=== PATIENT | female | born 1980 | race Caucasian/White ===

== ENCOUNTER 2017-01-30 17:58 | Inpatient (IN) | payer BC ==
[2017-01-30 19:30] VITALS: BMI 26.9
--- NOTE | 2017-01-30 20:17 | HP ---
COWS - Scale Resting Pulse: 0= [place] 80 or Below Sweatin=Flushed/Facial Moisture Restless Observation: 1= Difficult to Sit Still Pupil Size: 1= Pupils >than Normal Bone or Joint Aches: 2= Severe Diffuse Aches Runny Nose/ Eye Tearin= Runny Nose/Eyes GI Upset > 30mins: 2= Nausea/Diarrhea Tremor Observation: 2= Slight Tremor Visible Yawning Observation: 0= None Anxiety or Irritability: 2=Irritable/Anxious Goose Flesh Skin: 0=Smooth Skin COWS Score: 14 CIWA Score - CIWA Score Nausea/Vomitin Muscle Tremors: 2 Anxiety: 3 Agitation: 2 Paroxysmal Sweats: 2 Orientation: 0-Oriented Tacttile Disturbances: 1-Very Mild Itch/Numbness Auditory Disturbances: 2-Mild Harshness/Frighten Visual Disturbances: 0-None Headache: 0-None Present CIWA-Ar Total Score: 14 Admission ROS S - HPI Chief Complaint: DEPENDENT ON HEROIN, XANAX, MARIJUANA AND COCAINE Allergies/Adverse Reactions: Allergies Allergy/AdvReac Type Severity Reaction Status Date / Time No Known Allergies Allergy Verified 01/30/17 20:26 History of Present Illness: THE PT. IS REQUESTING ADMISSION TO THE DETOX UNIT AND CAME FOR MEDICAL CLEARANCE. Exam Limitations: No Limitations - Ebola screening Have you traveled outside of the country in the last 21 days: No Have you had contact with anyone from an Ebola affected area: No Have you been sick,other than usual withdrawal symptoms: No Do you have a fever: No - Review of Systems Constitutional: See HPI, Malaise, Weakness EENT: reports: See HPI, Tearing Respiratory: reports: See HPI Cardiac: reports: See HPI GI: reports: See HPI, Diarrhea, Nausea, Vomiting, Abdominal cramping : reports: No Symptoms Reported, See HPI Musculoskeletal: reports: See HPI, Muscle Pain, Muscle Weakness Integumentary: reports: See HPI, Flushing, Sweating Neuro: reports: See HPI, Headache, Tremors, Weakness Endocrine: reports: See HPI Hematology: reports: See HPI Psychiatric: reports: Judgement Intact, Orientated x3, Anxious, Depressed Patient History - Patient Medical History Hx Seizures: No Hx Human Immunodeficiency Virus (HIV): Yes Hx Hepatitis C: No Hx Suicide Attempt: No Hx Bipolar Disorder: Yes (AND ANXIETY) - Patient Surgical History Past Surgical History: No Other Surgical History: BTL IN 2003 - Reproductive History Patient is a Female of Child Bearing Age (11 -55 yrs old): Yes Last Menstrual Period: 01/15/17 Patient : No - Smoking Cessation Smoking history: Never smoked Hx Chewing Tobacco Use: No Initiated information on smoking cessation: No 'Breaking Loose' booklet given: 01/30/17 - Substances Abused Heroin Route: Inhalation Frequency: Daily Amount used: 1/2 GRAM/D Age of first use: 34 Date of Last Use: 01/29/17 Alprazolam (Xanax) Route: Oral Frequency: Daily Amount used: 1 STICK/D Age of first use: 30 Date of Last Use: 01/28/17 Marijuana/Hashish Route: Smoking Frequency: 1-2 times per week Amount used: $10/D Age of first use: 20 Date of Last Use: 01/28/17 Cocaine Route: Inhalation Frequency: 1-3 times last 30 days Amount used: $20/ONCE A MONTH Age of first use: 27 Date of Last Use: 01/27/17 Family Disease History - Family Disease History Family History: Denies Admission Physical Exam [facility] - Vital Signs Vital Signs: Vital Signs - 24 hr 01/30/17 19:23 Temperature 98.0 F Pulse Rate 67 Respiratory 16 Rate Blood Pressure 119/70 - Physical General Appearance: Yes: No Apparent Distress, Nourished, Appropriately Dressed , Tremorous, Irritable, Sweating, Anxious HEENTM: Yes: Hearing grossly Normal, Normocephalic, Normal Voice, BRI, Pharynx Normal Respiratory: Yes: Chest Non-Tender, Lungs Clear, Normal Breath Sounds, No Respiratory Distress, No Accessory Muscle Use Neck: Yes: No masses,lesions,Nodules, Supple, Trachea in good position Breast: Yes: Breast Exam Deferred, Axillae without masses Cardiology: Yes: Regular Rhythm, Regular Rate, S1, S2 Abdominal: Yes: Normal Bowel Sounds, Non Tender, Flat, Soft Back: Yes: Normal Inspection Musculoskeletal: Yes: full range of Motion, Gait Steady, Pelvis Stable, Muscle Pain, Muscle weakness Extremities: Yes: Normal Capillary Refill, Normal Range of Motion, Non-Tender, Tremors Neurological: Yes: construction project mgr II-XII NML intact, Fully Oriented, Alert, Motor Strength 5/5, Normal Response Integumentary: Yes: Normal Color, Warm, Moist Lymphatic: Yes: Within Normal Limits Cleared for Admission S - Detox or Rehab [facility] Level of Care: Medically Supervised Detox Regimen/Protocol: Methadone/Valium S Breath Alcohol Content Breath Alcohol Content: 0 Urine Pregancy Test - Test Device Lot Number: [id number] Expiration Date: 08/13/16 - Control Horizontal Line in Upper Control Window?: Yes - Result Urine Test Results: Negative- NO Line Present Urine Drug Screen - Test Device Lot Number: [id number] Expiration Date: 10/13/16 - Control Is Test Valid: Yes - Results Drug Screen Negative: No Urine Drug Screen Results: THC-Marijuana, CHAUNCEY-Cocaine, OPI-Opiates, BZO- Benzodiazepines, MTD-Methadone
[2017-01-30] MEDS ORDERED: MENTHOL/PHENOL 1 EACH UD MM PRN (20:32)
[2017-01-30] MEDS ORDERED: METHADONE HCL 10 MG TABLET (FOR DETOX USE ONLY) PO ONE ×2 (20:32→23:00)
[2017-01-30] MEDS ORDERED: NICOTINE POLACRILEX 2 MG GUM BUC PRN (20:32)
[2017-01-30] MEDS ORDERED: LOPERAMIDE HCL 2 MG CAPSULE PO PRN (20:32)
[2017-01-30] MEDS ORDERED: diazePAM 5 MG TABLET PO ONE (20:32)
[2017-01-30] MEDS ORDERED: hydrOXYzine PAMOATE 25 MG CAPSULE (FP) PO PRN (20:32)
[2017-01-30] MEDS ORDERED: guaiFENesin/D-METHORPHAN HB 10 ML UNIT-DOSE CUPS PO PRN (20:32)
[2017-01-30] MEDS ORDERED: ACETAMINOPHEN 325 MG TABLET (FP) PO PRN (20:32)
[2017-01-30] MEDS ORDERED: IBUPROFEN 400 MG TABLET (FP) PO PRN (20:32)
[2017-01-30] MEDS ORDERED: P-EPHED 60MG/TRIPROLIDI 2.5MG TABLET PO PRN (20:32)
[2017-01-30] MEDS ORDERED: MAG HYDROX/AL HYDROX/SIMETH 30 ML UNIT-DOSE CUP PO PRN (20:32)
[2017-01-30] MEDS ORDERED: MAGNESIUM HYDROX 2400MG/30ML ORAL SUSPENSION 30 ML CUP PO PRN (20:32)
[2017-01-30] MEDS ORDERED: MAGNESIUM CITRATE 300 ML BOTTLE PO PRN (20:32)
[2017-01-30] MEDS: THIAMINE HCL 100 MG TABLET (FP) PO SCH (22:16)
[2017-01-30] MEDS: diazePAM 5 MG TABLET PO SCH (23:03)
[2017-01-31] MEDS: diazePAM 5 MG TABLET PO SCH ×3 (06:06→22:24)
[2017-01-31 09:49] LABS: MCH 29.9 pg (25.7-33.7); MCHC 32.7 g/dl (32.0-36.0); MEAN CELL VOLUME 91.5 fl (80-96); MEAN PLT VOLUME 9.1 fl (7.5-11.1); PLATELET COUNT 174 K/MM3 (134-434); WHITE BLOOD COUNT 3.9 K/mm3 (4.0-10.0)
[2017-01-31] MEDS ORDERED: METHADONE HCL 10 MG TABLET (FOR DETOX USE ONLY) PO SCH (10:00)
--- NOTE | 2017-01-31 10:00 | PN ---
[facility] CIWA - CIWA Score Nausea/Vomitin Muscle Tremors: 3 Anxiety: 3 Agitation: 3 Paroxysmal Sweats: 1-Minimal Palms Moist Orientation: 0-Oriented Tacttile Disturbances: 1-Very Mild Itch/Numbness Auditory Disturbances: 1-Very Mild Visual Disturbances: 1-Very Mild Sensitivity Headache: 2-Mild CIWA-Ar Total Score: 18 BHS COWS - Scale Resting Pulse: 0= [place] 80 or Below Sweatin= Chills/Flushing Restless Observation: 3= Extraneous Movement Pupil Size: 1= Pupils >than Normal Bone or Joint Aches: 2= Severe Diffuse Aches Runny Nose/ Eye Tearin= Runny Nose/Eyes GI Upset > 30mins: 3= Vomiting/Diarrhea Tremor Observation of Outstretched Hands: 2= Slight Tremor Visible Yawning Observation: 1= 1-2x During Session Anxiety or Irritability: 2=Irritable/Anxious Goose Flesh Skin: 0=Smooth Skin COWS Score: 17 S Progress Note (SOAP) Subjective: alert,irritable,anxious.interrupted sleep,tremor,pain in the body and back Objective: 01/31/17 09:57 Vital Signs Temperature 97.9 F 01/31/17 06:09 Pulse Rate 79 01/31/17 06:09 Respiratory Rate 16 01/31/17 06:09 Blood Pressure 88/64 01/31/17 06:09 O2 Sat by Pulse Oximetry (%) ekg sinus bradycardia 58 /min no chest pain,no sob,no dizziness Laboratory Last Values WBC 3.9 K/mm3 (4.0-10.0) L 01/31/17 07:00 RBC 3.76 M/mm3 (3.60-5.2) 01/31/17 07:00 Hgb 11.3 GM/dL (10.7-15.3) 01/31/17 07:00 Hct 34.4 % (32.4-45.2) 01/31/17 07:00 MCV 91.5 fl (80-96) 01/31/17 07:00 MCH 29.9 pg (25.7-33.7) 01/31/17 07:00 MCHC 32.7 g/dl (32.0-36.0) 01/31/17 07:00 RDW 13.0 % (11.6-15.6) 01/31/17 07:00 Plt Count 174 K/MM3 (134-434) 01/31/17 07:00 MPV 9.1 fl (7.5-11.1) 01/31/17 07:00 labs pending Assessment: 01/31/17 09:59 withdrawal symptom Plan: continue detox
[2017-01-31 10:09] LABS: ALBUMIN 3.3 g/dl (3.4-5.0); ALK PHOS 58 U/L (45-117); ANION GAP 4 (8-16); BILIRUBIN,TOTAL 0.4 mg/dL (0.2-1.0); CALCIUM 8.4 mg/dL (8.5-10.1); CO2 30 mmol/L (21-32); CREATININE 0.8 mg/dL (0.55-1.02); GLUCOSE,RANDOM 73 mg/dL (74-106); SGOT/AST 11 U/L (15-37); SGPT/ALT 14 U/L (12-78); TOT PROT 6.5 g/dl (6.4-8.2)
[2017-01-31] MEDS: PRENATAL VITAMINS W/ FOLIC ACID TABLET (FP) PO SCH (10:17)
[2017-01-31] MEDS: DARUNAVIR ETHANOLATE 800 MG TAB PO SCH (10:21)
[2017-01-31] MEDS: RITONAVIR 100 MG TABLET PO SCH (10:21)
[2017-01-31] MEDS: EMTRICITABINE 200MG/TENOFOVIR 300MG PO SCH (10:21)
[2017-01-31] MEDS: diazePAM 5 MG TABLET PO PRN (10:23)
--- NOTE | 2017-01-31 10:47 | CONSULT ---
[facility] Psychiatric Consult - Data Date of interview: 01/31/17 Admission source: [facility] Identifying data: This is 36 years old female with n o psychiatric hospitalizationm history intoxicated with: Heroin, Cocaine, Cannabis, Xanax and Nicotine Substance Abuse History: - Smoking Cessation. Smoking history: Never smoked. Hx Chewing Tobacco Use: No. Initiated information on smoking cessation: No. ' Breaking Loose' booklet given: 01/30/17. - Substances Abused. Heroin. Route: Inhalation. Frequency: Daily. Amount used: 1/2 GRAM/D. Age of first use: 34. Date of Last Use: 01/29/17. Alprazolam (Xanax). Route: Oral. Frequency: Daily. Amount used: 1 STICK/D. Age of first use: 30. Date of Last Use: 01/28/17. Marijuana/Hashish. Route: Smoking. Frequency: 1-2 times per week. Amount used: $10/D. Age of first use: 20. Date of Last Use: . Cocaine. Route: Inhalation. Frequency: 1-3 times last 30 days. Amount used: $20/ONCE A MONTH. Age of first use: 27. Date of Last Use: Medical History: HIV+, Psychiatric History: Patient reprots no past psychiatric history Physical/Sexual Abuse/Trauma History: Denies Additional Comment: Observation. Detox Unit Care Protocol Mental Status Exam - Mental Status Exam Alert and Oriented to: Place, Person Cognitive Function: Fair Patient Appearance: Well Groomed Mood: Apprehensive Affect: Mood Congruent Patient Behavior: Cooperative Speech Pattern: Appropriate Voice Loudness: Normal Thought Process: Goal Oriented Thought Disorder: Being Controlled Hallucinations: Denies Suicidal Ideation: Denies Homicidal Ideation: Denies Insight/Judgement: Fair Sleep: Difficulty falling asleep Appetite: Fair Muscle strength/Tone: Normal Gait/Station: Normal Additional Comments: Observation. Detox Unit Care Protocol Psychiatric Findings - Problem List ([place] 1, 2,3) (1) Cannabis dependence Current Visit: Yes Status: Acute (2) Cocaine dependence Current Visit: Yes Status: Acute (3) Opioid dependence with withdrawal Current Visit: Yes Status: Acute (4) Uncomplicated sedative, hypnotic or anxiolytic withdrawal Current Visit: Yes Status: Acute (5) Nicotine dependence Current Visit: Yes Status: Acute - Initial Treatment Plan Initial Treatment Plan: Observation. Detox Unit Care Protocol
[2017-01-31 14:24] LABS: URINE APPEARANCE SLCLOUDY; URINE BILIRUBIN NEGATIVE (NEGATIVE); URINE BLOOD NEGATIVE (NEGATIVE); URINE COLOR YELLOW; URINE GLUCOSE (UA) NEGATIVE (NEGATIVE); URINE KETONE NEGATIVE (NEGATIVE); URINE LEUK ESTERASE TRACE (NEGATIVE); URINE NITRITE NEGATIVE (NEGATIVE); URINE PROTEIN NEGATIVE (NEGATIVE); URINE UROBILINOGEN NEGATIVE mg/dL (0.2-1.0)
[2017-01-31 14:31] LABS: URINE MUCUS MANY; URINE RBC 1 /hpf (0-3); URINE WBC 10 /hpf (3-5)
--- NOTE | 2017-01-31 17:01 | EKG ---
Test Reason : Blood Pressure : / mmHG Vent. Rate : 058 BPM Atrial Rate : 058 BPM P-R Int : 154 ms QRS Dur : 080 ms QT Int : 416 ms P-R-T Axes : 050 053 050 degrees QTc Int : 408 ms SINUS BRADYCARDIA POSSIBLE LEFT ATRIAL ENLARGEMENT BORDERLINE ECG NO PREVIOUS ECGS AVAILABLE Confirmed by KATIE SHAH MD ([id number]) on 01/31/2017 5:00:42 PM Referred By: Confirmed By:KATIE SHAH MD
[2017-01-31] MEDS: THIAMINE HCL 100 MG TABLET (FP) PO SCH (22:24)
[2017-01-31] MEDS: diphenhydrAMINE HCL 50 MG CAPSULE PO PRN (22:24)
[2017-02-01] MEDS: diazePAM 5 MG TABLET PO PRN ×2 (05:16→14:24)
[2017-02-01] MEDS: EMTRICITABINE 200MG/TENOFOVIR 300MG PO SCH (07:36)
[2017-02-01] MEDS: DARUNAVIR ETHANOLATE 800 MG TAB PO SCH (07:36)
[2017-02-01] MEDS: RITONAVIR 100 MG TABLET PO SCH (07:36)
--- NOTE | 2017-02-01 09:22 | PN ---
S CIWA - CIWA Score Nausea/Vomitin Muscle Tremors: 3 Anxiety: 3 Agitation: 3 Paroxysmal Sweats: 1-Minimal Palms Moist Orientation: 0-Oriented Tacttile Disturbances: 1-Very Mild Itch/Numbness Auditory Disturbances: 1-Very Mild Visual Disturbances: 1-Very Mild Sensitivity Headache: 2-Mild CIWA-Ar Total Score: 17 BHS COWS - Scale Resting Pulse: 0= [place] 80 or Below Sweatin= Chills/Flushing Restless Observation: 3= Extraneous Movement Pupil Size: 1= Pupils >than Normal Bone or Joint Aches: 2= Severe Diffuse Aches Runny Nose/ Eye Tearin= Nasal Congestion GI Upset > 30mins: 3= Vomiting/Diarrhea Tremor Observation of Outstretched Hands: 2= Slight Tremor Visible Yawning Observation: 1= 1-2x During Session Anxiety or Irritability: 2=Irritable/Anxious Goose Flesh Skin: 0=Smooth Skin COWS Score: 16 BHS Progress Note (SOAP) Subjective: alert,irritable,anxious,interrupted sleep,pain in the body and back,tremor Objective: 02/01/17 09:21 Vital Signs Temperature 97.5 F L 02/01/17 06:00 Pulse Rate 62 02/01/17 06:00 Respiratory Rate 18 02/01/17 06:00 Blood Pressure 102/57 02/01/17 06:00 O2 Sat by Pulse Oximetry (%) Laboratory Last Values WBC 3.9 K/mm3 (4.0-10.0) L 01/31/17 07:00 RBC 3.76 M/mm3 (3.60-5.2) 01/31/17 07:00 Hgb 11.3 GM/dL (10.7-15.3) 01/31/17 07:00 Hct 34.4 % (32.4-45.2) 01/31/17 07:00 MCV 91.5 fl (80-96) 01/31/17 07:00 MCH 29.9 pg (25.7-33.7) 01/31/17 07:00 MCHC 32.7 g/dl (32.0-36.0) 01/31/17 07:00 RDW 13.0 % (11.6-15.6) 01/31/17 07:00 Plt Count 174 K/MM3 (134-434) 01/31/17 07:00 MPV 9.1 fl (7.5-11.1) 01/31/17 07:00 Sodium 138 mmol/L (136-145) 01/31/17 07:00 Potassium 3.9 mmol/L (3.5-5.1) 01/31/17 07:00 Chloride 104 mmol/L (98-107) 01/31/17 07:00 Carbon Dioxide 30 mmol/L (21-32) 01/31/17 07:00 Anion Gap 4 (8-16) L 01/31/17 07:00 BUN 19 mg/dL (7-18) H 01/31/17 07:00 Creatinine 0.8 mg/dL (0.55-1.02) 01/31/17 07:00 Creat Clearance w eGFR > 60 (>60) 01/31/17 07:00 Random Glucose 73 mg/dL (74-106) L 01/31/17 07:00 Calcium 8.4 mg/dL (8.5-10.1) L 01/31/17 07:00 Total Bilirubin 0.4 mg/dL (0.2-1.0) 01/31/17 07:00 AST 11 U/L (15-37) L 01/31/17 07:00 ALT 14 U/L (12-78) 01/31/17 07:00 Alkaline Phosphatase 58 U/L (45-117) 01/31/17 07:00 Total Protein 6.5 g/dl (6.4-8.2) 01/31/17 07:00 Albumin 3.3 g/dl (3.4-5.0) L 01/31/17 07:00 Urine Color Yellow 01/31/17 09:55 Urine Appearance Slcloudy 01/31/17 09:55 Urine pH 6.0 (5.0-8.0) 01/31/17 09:55 Ur Specific [place] 1.025 (1.005-1.025) 01/31/17 09:55 Urine Protein Negative (NEGATIVE) 01/31/17 09:55 Urine Glucose (UA) Negative (NEGATIVE) 01/31/17 09:55 Urine Ketones Negative (NEGATIVE) 01/31/17 09:55 Urine Blood Negative (NEGATIVE) 01/31/17 09:55 Urine Nitrite Negative (NEGATIVE) 01/31/17 09:55 Urine Bilirubin Negative (NEGATIVE) 01/31/17 09:55 Urine Urobilinogen Negative mg/dL (0.2-1.0) 01/31/17 09:55 Urine RBC 1 /hpf (0-3) 01/31/17 09:55 Urine WBC 10 /hpf (3-5) 01/31/17 09:55 Ur Epithelial Cells Few /hpf (FEW) 01/31/17 09:55 Urine Mucus Many 01/31/17 09:55 RPR Titer Nonreactive (NONREACTIVE) 01/31/17 07:00 Assessment: 02/01/17 09:21 withdrawal symptom Plan: continue detox,encourage oral fluid,ensure plus 120 mls po bid
[2017-02-01] MEDS ORDERED: METHADONE HCL 5 MG TABLET (FOR DETOX USE ONLY) PO SCH (10:00)
[2017-02-01] MEDS: diazePAM 5 MG TABLET PO SCH ×2 (10:09→22:08)
[2017-02-01] MEDS: PRENATAL VITAMINS W/ FOLIC ACID TABLET (FP) PO SCH (10:09)
--- NOTE | 2017-02-01 16:10 | PN ---
Psychiatric Progress Note Vital Signs: Vital Signs Period Temp Pulse Resp BP Sys/Castellon Pulse Ox Last 24 Hr 97.2 F-98.2 F 61-79 16-18 94-116/55-73 Date of Session: 02/01/17 Chief Complaint:: Insomnia HPI: Patien reports insomnia, reprots good response in the past for Seroquel 100mg po qhs Current Medications: Active Medications Generic Name Dose Route Start Last Admin Trade Name Freq PRN Reason Stop Dose Admin Acetaminophen 650 mg 01/30/17 20:32 Tylenol - PO Q4H PRN FEVER OR PAIN Al Hydroxide/Mg Hydroxide 30 ml 01/30/17 20:32 Mylanta Oral Suspension - PO Q6H PRN DYSPEPSIA Darunavir 800 mg 01/31/17 10:00 02/01/17 07:36 Prezista - PO 800 mg DAILY@0800 JORGE Administration Diazepam 10 mg 01/30/17 20:32 02/01/17 14:24 Valium - PO 02/02/17 20:32 10 mg Q4H PRN Administration WITHDRAWAL(CONT SUBST) Diazepam 5 mg 02/01/17 10:00 02/01/17 10:09 Valium - PO 02/02/17 22:01 5 mg BID JORGE Administration Diazepam 5 mg 02/03/17 10:00 Valium - PO 02/03/17 10:01 DAILY JORGE Diphenhydramine HCl 50 mg 01/30/17 20:32 01/31/17 22:24 Benadryl - PO 50 mg HSMR1 PRN Administration INSOMNIA Emtricitabine/Tenofovir 1 tab 01/31/17 10:00 02/01/17 07:36 Truvada PO 1 tab DAILY@0800 JORGE Administration Eucalyptus/Menthol/Phenol/Sorbitol 1 each 01/30/17 20:32 Cepastat Lozenge - MM Q4H PRN SORE THROAT Guaifenesin 10 ml 01/30/17 20:32 Robitussin Dm - PO Q6H PRN COUGH Hydroxyzine Pamoate 25 mg 01/30/17 20:32 Vistaril - PO Q4H PRN AGITATION Ibuprofen 400 mg 01/30/17 20:32 Motrin - PO Q6H PRN SEVERE PAIN Loperamide HCl 4 mg 01/30/17 20:32 Imodium - PO Q6H PRN DIARRHEA Magnesium Citrate 300 ml 01/30/17 20:32 Citroma - PO Q48H PRN CONSTIPATION Magnesium Hydroxide 30 ml 01/30/17 20:32 Milk Of Magnesia - PO DAILY PRN CONSTIPATION Methadone HCl 10 mg 02/03/17 10:00 Dolophine - PO 02/03/17 10:01 DAILY JORGE Methadone HCl 15 mg 02/01/17 10:00 02/01/17 10:10 Dolophine - PO 02/02/17 10:01 15 mg DAILY JORGE Administration Methadone HCl 5 mg 02/04/17 06:00 Dolophine - PO 02/04/17 06:01 DAILY@0600 JORGE Nicotine Polacrilex 2 mg 01/30/17 20:32 Nicorette Gum - BUC Q2H PRN NICOTINE REPLACEMENT RX Multivit/Folic Acid/Iron 1 tab 01/31/17 10:00 02/01/17 10:09 Vitamins (Sjr) - PO 1 tab DAILY JORGE Administration Pseudoephedrine/Triprolidine 1 combo 01/30/17 20:32 Actifed - PO TID PRN NASAL CONGESTION Ritonavir 100 mg 01/31/17 10:00 02/01/17 07:36 Norvir - PO 100 mg DAILY@0800 JORGE Administration Thiamine HCl 100 mg 01/30/17 22:00 01/31/17 22:24 Vitamin B1 - PO 100 mg HS JORGE Administration Medication(s) Change(s): Seroquel 100mg po qhs Mental Status Exam - Mental Status Exam Alert and Oriented to: Person Cognitive Function: Fair Patient Appearance: Unkempt Mood: Sad Affect: Mood Congruent Patient Behavior: Cooperative Speech Pattern: Appropriate Voice Loudness: Mildly Soft/Quiet Thought Process: Goal Oriented Thought Disorder: Being Controlled Hallucinations: Denies Suicidal Ideation: Denies Homicidal Ideation: Denies Insight/Judgement: Impaired Sleep: Difficulty falling asleep Appetite: Weight gain Muscle strength/Tone: Normal Gait/Station: Normal Additional Comments: Seroquel 100mg po qhs Psychiatric Treatment Plan - Problem List (1) Cannabis dependence Current Visit: Yes (2) Cocaine dependence Current Visit: Yes (3) Opioid dependence with withdrawal Current Visit: Yes (4) Uncomplicated sedative, hypnotic or anxiolytic withdrawal Current Visit: Yes (5) Nicotine dependence Current Visit: Yes Initial treatment plan: Seroquel 100mg po qhs
[2017-02-01] MEDS: QUEtiapine FUMARATE 100 MG TABLET (FP) PO SCH (22:09)
[2017-02-01] MEDS: THIAMINE HCL 100 MG TABLET (FP) PO SCH (22:09)
[2017-02-02] MEDS: diazePAM 5 MG TABLET PO PRN ×2 (05:32→14:27)
[2017-02-02] MEDS: EMTRICITABINE 200MG/TENOFOVIR 300MG PO SCH (09:00)
[2017-02-02] MEDS: DARUNAVIR ETHANOLATE 800 MG TAB PO SCH (09:00)
[2017-02-02] MEDS: RITONAVIR 100 MG TABLET PO SCH (09:00)
[2017-02-02] MEDS ORDERED: METHADONE HCL 10 MG TABLET (FOR DETOX USE ONLY) PO ONE (10:00)
[2017-02-02] MEDS: diazePAM 5 MG TABLET PO SCH ×2 (10:07→22:12)
[2017-02-02] MEDS: PRENATAL VITAMINS W/ FOLIC ACID TABLET (FP) PO SCH (10:07)
--- NOTE | 2017-02-02 10:56 | PN ---
S Progress Note (SOAP) Subjective: alert,irritable,interrupted sleep,pain in the body Objective: 02/02/17 10:54 Vital Signs Temperature 97 F L 02/02/17 09:28 Pulse Rate 88 02/02/17 09:28 Respiratory Rate 16 02/02/17 09:28 Blood Pressure 99/69 02/02/17 09:28 O2 Sat by Pulse Oximetry (%) Assessment: 02/02/17 10:55 withdrawal symptom Plan: continue detox,medication adjust,discharge in am
[2017-02-02] MEDS: QUEtiapine FUMARATE 100 MG TABLET (FP) PO SCH (22:12)
[2017-02-02] MEDS: diphenhydrAMINE HCL 50 MG CAPSULE PO PRN (22:12)
[2017-02-02] MEDS: THIAMINE HCL 100 MG TABLET (FP) PO SCH (22:12)
[2017-02-03] MEDS ORDERED: METHADONE HCL 5 MG TABLET (FOR DETOX USE ONLY) PO ONE (06:00)
[2017-02-03] MEDS: DARUNAVIR ETHANOLATE 800 MG TAB PO SCH (07:01)
[2017-02-03] MEDS: EMTRICITABINE 200MG/TENOFOVIR 300MG PO SCH (07:02)
[2017-02-03] MEDS: RITONAVIR 100 MG TABLET PO SCH (07:02)
--- NOTE | 2017-02-03 08:31 | DS ---
[facility] Detox Discharge Summary Admission Date: 01/30/17 Discharge Date: 02/03/17 - History Present History: Cannabis Dependence, Cocaine Dependence, Opioid Dependence, Sedative Dependence Additional Comments: follow up with after care program as arrangement Pertinent Past History: hiv bipolar disorder - Physical Exam Results Vital Signs: Vital Signs Temperature 97.8 F 02/03/17 06:21 Pulse Rate 86 02/03/17 06:21 Respiratory Rate 18 02/03/17 06:21 Blood Pressure 111/59 02/03/17 06:21 O2 Sat by Pulse Oximetry (%) Pertinent Admission Physical Exam Findings: withdrawal symptom - Treatment Hospital Course: Detox Protocol Followed, Detoxed Safely, Responded well, Discharged Condition Good Patient has Accepted a Rehab Referral to: declined - Medication Discharge Medications: Ambulatory Orders Quetiapine Fumarate [Seroquel] 100 mg PO HS #30 tablet 02/01/17 - AMA Did Patient Leave Against Medical Advice: No
[2017-02-03 09:43] VITALS: BP 112/74; PULSE 94; TEMP 97.7
[2017-02-03] MEDS ORDERED: diazePAM 5 MG TABLET PO SCH (10:00)
[2017-02-03] MEDS ORDERED: METHADONE HCL 10 MG TABLET (FOR DETOX USE ONLY) PO SCH (10:00)
[2017-02-04] MEDS ORDERED: METHADONE HCL 5 MG TABLET (FOR DETOX USE ONLY) PO SCH (06:00)
== END 2017-02-03 11:00 | disposition home or self-care (01) | DRG 773 ==
LOC: YASAS 17:58 → Y6N 20:25
PROVIDERS: ADMIT Internal Medicine; ATTEND Internal Medicine
PROC: HZ2ZZZZ Detoxification Services for Substance Abuse Treatment (ICD-10-PCS; principal; 2017-01-30)
DX: F11.20 Opioid dependence, uncomplicated (principal); F13.230 Sedative, hypnotic or anxiolytic dependence with withdrawal, uncomplicated; F14.20 Cocaine dependence, uncomplicated; F12.20 Cannabis dependence, uncomplicated; F17.210 Nicotine dependence, cigarettes, uncomplicated; F31.9 Bipolar disorder, unspecified; Z21 Asymptomatic human immunodeficiency virus [HIV] infection status
CPT/HCPCS: 36415; 80053; 81003; 81015; 85027; 86593; 93005; 93010